=== PATIENT | female | born 1965 | race Caucasian/White ===

== ENCOUNTER 2016-12-09 13:30 | Emergency (ER) | payer OTHER ==
[2016-12-09] MEDS ORDERED: Sodium Chloride 0.9% 10 ML Syringe FLUSH PRN (13:45)
[2016-12-09] MEDS ORDERED: Sodium Chloride 0.9% 1,000 ML IV SCH ×2 (14:00→16:30)
--- NOTE | 2016-12-09 14:50 | CR ---
Chest: Portable view of the chest was obtained. Comparison: No previous chest x-ray. Heart size and mediastinum are normal. Parenchymal density is noted within the right upper lung. This may relate to costochondral calcification but difficult to exclude nodule. Lungs otherwise are clear. Bony structures are grossly intact. Impression: 1. Finding within the right upper chest as described above. Noncontrast chest CT recommended to exclude the possibility of nodule. 2. Nothing acute is otherwise seen on portable chest x-ray. Diagnostic code #9
--- NOTE | 2016-12-09 15:24 | EDM.PDOC ---
ED HISTORY OF PRESENT ILLNESS - General Chief Complaint: Chest Pain Stated Complaint: CHEST PAINS x3 DAYS AND CHILLS Time Seen by Provider: 12/09/16 13:42 Source of Information: Reports: Patient, RN notes reviewed - History of Present Illness INITIAL COMMENTS - FREE TEXT/NARRATIVE: 51-year-old lady comes in with chest pain. She's had this intermittently for about 3-4 days. Pain has been mid chest and right upper chest with some radiation to the right shoulder. She's not been coughing any more than usual. She does not smoke. The pain is worse with deep breathing. She has had some nausea but no vomiting. She presents to the ED extremely drowsy. Her speech is very soft, quiet, slurred difficult to understand. Her daughter present with her states that she has been taking lorazepam on a regular basis prescribed by her own physician refugio Monroe. Her about 6 months ago. She's been very stressed with that and takes that for stress and anxiety. She also does take sleeping medication. Patient states she took one lorazepam this morning about 68 hours ago and then took another lorazepam about 6 one or 2 hours ago. Apparently she is having difficulty sleeping last night so she did take a sleeping pill at about 3 AM and then states she took another sleeping pill about 3 or 4 hours later. No abdominal pain at this time. No fever or chills. - Related Data Allergies/ADRs: Allergies Allergy/AdvReac Type Severity Reaction Status Date / Time latex Allergy Rash Verified 12/13/16 15:22 meperidine [From Demerol] Allergy Rash Verified 12/13/16 15:22 Home Meds: Home Meds Cyanocobalamin (Vitamin B12) [Vitamin B12] 1,000 mcg SUBCUT ASDIRECTED 12/09/16 [History] LORazepam [Ativan] 1 mg PO Q4H PRN 12/09/16 [History] QUEtiapine [SEROquel] 50 mg PO BEDTIME PRN 12/09/16 [History] Venlafaxine HCl [Venlafaxine ER] 37.5 mg PO DAILY 12/09/16 [History] Venlafaxine HCl [Venlafaxine ER] 150 mg PO DAILY 12/09/16 [History] risperiDONE 0.25 mg PO BID 12/09/16 [History] Past Medical History Gastrointestinal History: Reports: Other (see below) Other Gastrointestinal History: gatric bypass Psychiatric History: Reports: Anxiety, Depression - Past Surgical History GI Surgical History: Reports: Appendectomy, Cholecystectomy Female Surgical History: Reports: Hysterectomy Social & Family History - Tobacco Use Smoking Status *Q: Former Smoker Used Tobacco, but Quit: No - Recreational Drug Use Recreational Drug Use: No ED ROS GENERAL - Review of Systems Review Of Systems: See Below Constitutional: Denies: fever, chills, diaphoresis HEENT: Denies: Sinus problem, Throat pain Respiratory: Reports: Shortness of Breath (Occasional), Pleuritic Chest Pain. Denies: Cough Cardiovascular: Reports: Chest pain (Mid chest and right upper chest) GI/Abdominal: Denies: Abdominal pain, Nausea, Vomiting Musculoskeletal: Reports: shoulder pain (Right shoulder intermittent). Denies: neck pain, arm pain, back pain, leg pain, joint pain Skin: Reports: no symptoms Neurological: Reports: Dizziness, Trouble Speaking (Speech is slurred) Psychiatric: Reports: Anxiety ED EXAM, GENERAL - Physical Exam Exam: See Below General Appearance: other (Patient is extremely drowsy, she does answer questions but her speech is slurred, soft, hard to understand) Eye Exam: bilateral eye: PERRL Throat/Mouth: Normal inspection, Other Head: atraumatic (Oral mucosa is dry). No: facial swelling Neck: supple, full range of motion Respiratory/Chest: lungs clear, normal breath sounds, other (There is tenderness of the left anterior chest). No: rales, rhonchi, wheezing Cardiovascular: regular rate, rhythm GI/Abdominal: soft, non tender Back Exam: No: CVA tenderness (L), CVA tenderness (R) Extremities: normal inspection. No: pedal edema, leg pain, increased warmth Neurological: no motor/sensory deficits, other (Very drowsy, she is off a couple of days on date of the week, and some difficulty telling me what month it is). No: oriented Skin Exam: Warm, Normal color, No rash EKG INTERPRETATION EKG Date: 12/09/16 Rhythm: NSR P-wave: present QRS: normal ST-T: normal Course - Vital Signs Last Recorded V/S: Last Vital Signs Temp 98.3 F 12/09/16 13:40 Pulse 76 12/09/16 18:15 Resp 15 12/09/16 18:15 BP 94/69 12/09/16 18:15 Pulse Ox 97 12/09/16 18:15 - Orders/Labs/Meds Labs: Laboratory Tests 12/09/16 12/09/16 12/09/16 Range/Units 14:05 14:05 14:05 WBC 5.46 (3.98-10.04) K/mm3 RBC 4.35 (3.98-5.22) M/mm3 Hgb 13.5 (11.2-15.7) gm/L Hct 40.8 (34.1-44.9) % MCV 93.8 (79.4-94.8) fl MCH 31.0 (25.6-32.2) pg MCHC 33.1 (32.2-35.5) g/dl RDW Std Deviation 44.0 (36.4-46.3) fL Plt Count 186 (182-369) K/mm3 MPV 10.3 (9.4-12.3) fl Neut % (Auto) 52.1 (34.0-71.1) % Lymph % (Auto) 37.4 (19.3-51.7) % [place] % (Auto) 9.9 (4.7-12.5) % Eos % (Auto) 0 L (0.7-5.8) Baso % (Auto) 0.4 (0.1-1.2) % Neut # (Auto) 2.85 (1.56-6.13) K/mm3 Lymph # (Auto) 2.04 (1.18-3.74) K/mm3 [place] # (Auto) 0.54 H (0.24-0.36) K/mm3 Eos # (Auto) 0.00 L (0.04-0.36) K/mm3 Baso # (Auto) 0.02 (0.01-0.08) K/mm3 Sodium 143 (136-145) mEq/L Potassium 3.8 (3.5-5.1) mEq/L Chloride 105 (98-107) mEq/L Carbon Dioxide 31 (21-32) mEq/L Anion Gap 10.8 (5-15) BUN 14 (7-18) mg/dL Creatinine 0.8 (0.55-1.02) mg/dL Est Cr Clr Drug Dosing 73.46 mL/min Estimated GFR (MDRD) > 60 (>60) mL/min BUN/Creatinine Ratio 17.5 (14-18) Glucose 92 (74-106) mg/dL Calcium 9.2 (8.5-10.1) mg/dL Total Bilirubin 0.3 (0.2-1.0) mg/dL AST 25 (15-37) U/L ALT 41 (14-59) U/L Alkaline Phosphatase 92 (46-116) U/L Total Protein 7.2 (6.4-8.2) g/dl Albumin 3.9 (3.4-5.0) g/dl Globulin 3.3 gm/dL Albumin/Globulin Ratio 1.2 (1-2) Urine Opiates Screen (NEGATIVE) Ur Buprenorphine Scrn (NEGATIVE) Ur Oxycodone Screen (NEGATIVE) Urine Methadone Screen (NEGATIVE) Ur Propoxyphene Screen (NEGATIVE) Ur Barbiturates Screen (NEGATIVE) Ur Tricyclics Screen (NEGATIVE) Ur Phencyclidine Scrn (NEGATIVE) Ur Amphetamine Screen (NEGATIVE) U Methamphetamines Scrn (NEGATIVE) U Benzodiazepines Scrn (NEGATIVE) U Cocaine Metab Screen (NEGATIVE) U Marijuana (THC) Screen (NEGATIVE) Ethyl Alcohol 0.00 (0.00) gm% 12/09/16 Range/Units 15:18 WBC (3.98-10.04) K/mm3 RBC (3.98-5.22) M/mm3 Hgb (11.2-15.7) gm/L Hct (34.1-44.9) % MCV (79.4-94.8) fl MCH (25.6-32.2) pg MCHC (32.2-35.5) g/dl RDW Std Deviation (36.4-46.3) fL Plt Count (182-369) K/mm3 MPV (9.4-12.3) fl Neut % (Auto) (34.0-71.1) % Lymph % (Auto) (19.3-51.7) % [place] % (Auto) (4.7-12.5) % Eos % (Auto) (0.7-5.8) Baso % (Auto) (0.1-1.2) % Neut # (Auto) (1.56-6.13) K/mm3 Lymph # (Auto) (1.18-3.74) K/mm3 [place] # (Auto) (0.24-0.36) K/mm3 Eos # (Auto) (0.04-0.36) K/mm3 Baso # (Auto) (0.01-0.08) K/mm3 Sodium (136-145) mEq/L Potassium (3.5-5.1) mEq/L Chloride (98-107) mEq/L Carbon Dioxide (21-32) mEq/L Anion Gap (5-15) BUN (7-18) mg/dL Creatinine (0.55-1.02) mg/dL Est Cr Clr Drug Dosing mL/min Estimated GFR (MDRD) (>60) mL/min BUN/Creatinine Ratio (14-18) Glucose (74-106) mg/dL Calcium (8.5-10.1) mg/dL Total Bilirubin (0.2-1.0) mg/dL AST (15-37) U/L ALT (14-59) U/L Alkaline Phosphatase (46-116) U/L Total Protein (6.4-8.2) g/dl Albumin (3.4-5.0) g/dl Globulin gm/dL Albumin/Globulin Ratio (1-2) Urine Opiates Screen Negative (NEGATIVE) Ur Buprenorphine Scrn Negative (NEGATIVE) Ur Oxycodone Screen Negative (NEGATIVE) Urine Methadone Screen Negative (NEGATIVE) Ur Propoxyphene Screen Negative (NEGATIVE) Ur Barbiturates Screen Negative (NEGATIVE) Ur Tricyclics Screen Presumptive positive H (NEGATIVE) Ur Phencyclidine Scrn Negative (NEGATIVE) Ur Amphetamine Screen Negative (NEGATIVE) U Methamphetamines Scrn Negative (NEGATIVE) U Benzodiazepines Scrn Presumptive positive H (NEGATIVE) U Cocaine Metab Screen Negative (NEGATIVE) U Marijuana (THC) Screen Negative (NEGATIVE) Ethyl Alcohol (0.00) gm% Meds: Medications Discontinued Medications Generic Name Dose Route Start Last Admin Trade Name Freq PRN Reason Stop Dose Admin Sodium Chloride 1,000 mls @ 999 mls/hr 12/09/16 14:00 12/09/16 14:41 Normal Saline IV 999 mls/hr ONETIME BIANCA Administration Sodium Chloride 1,000 mls @ 999 mls/hr 12/09/16 16:30 12/09/16 16:34 Normal Saline IV 999 mls/hr ONETIME BIANCA Administration Sodium Chloride 10 ml 12/09/16 13:45 12/09/16 14:41 Saline Flush FLUSH 10 ml ASDIRECTED PRN Administration Keep Vein Open - Re-Assessments/Exams Free Text/Narrative Re-Assessment/Exam: 12/09/16 15:38 Chest x-ray shows a small density right upper chest radiologist recommends noncontrast CT to exclude the possibility of nodule. That will be done at this time. 12/09/16 15:40 EKG is completely normal. Sinus rythm, no ectopy. Daughter states she has been under a lot of stress with the of her about 7 months ago and now some other family problems. 12/09/16 17:49 Ct of chest was good. Pt remained very drowsy from time of arrival. Have now given 2 liter of IV NS. She is very arouseable. She was hungry, ate a dinner plate quite well and than went back to sleep. She does wake up to discuss discharge. She will be with family tonight and tomorrow. Sats remain good in the 98 % range. We did get her up to walk. She is unsteady on her feet but did walk out into the hallway and than back to her room with precautionary assistance. Family will be with her to help keep her safe. Discharge instr. as documented. 12/09/16 18:11 Departure - Departure Time of Disposition: 17:43 Disposition: Home, Self-Care 01 Condition: fair Clinical Impression: Atypical chest pain Accidental medication overdose Qualifiers: Encounter type: initial encounter Qualified Code(s): T50.901A - Poisoning by unspecified drugs, medicaments and biological substances, accidental ( unintentional), initial encounter Instructions: Nonspecific Chest Pain, [id number] Referrals: PCP,None [Primary Care Provider] - Forms: ED Department Discharge Additional Instructions: the dosage of ativan you have been prescribed is too high for you. Also it takes a long time for it to metabolize out of your body. No further ativan recomended for 48 hrs. I than recomend you go to 0.5 mg or 1/2 tablet q 12 hrs as needed for stress and anxiety. Continue to see your counselor on a regular basis. Exercise outdoors every day if possible. advil or ibuprofen q 6 to 8 hr if needed for further chest discomfort. Return to ED as needed.
--- NOTE | 2016-12-09 15:53 | CT ---
CT chest Technique: Multiple axial sections were obtained from above the lung apices inferiorly through the lung bases. Intravenous contrast was not utilized. Findings: Small subpleural bleb is seen within the left base measuring 1.4 cm. Minimal dependent atelectasis is seen posteriorly within both lung bases which is incidental. No pulmonary nodule is seen. Nodule noted on prior chest x-ray therefore corresponds to calcification within the first costochondral junction. Mediastinum and hilar regions show no adenopathy or mass. Mild coronary artery calcification is seen. No pericardial thickening is seen. Previous stomach surgery is noted. Surgical clips are noted from prior cholecystectomy. Bilateral breast prosthesis are seen. Bone window settings were reviewed which appear within normal limits for the patient's age. Impression: 1. No pulmonary nodule is seen as questioned on chest x-ray. Nodule on chest x-ray therefore represents costochondral calcification. 2. Other incidental findings as described above. Diagnostic code #2
[2016-12-09 18:25] VITALS: BP 94/69
== END 2016-12-09 18:20 ==
LOC: JD.ED 13:30
DX: R07.89 Other chest pain (principal); T50.901A Poisoning by unspecified drugs, medicaments and biological substances, accidental (unintentional), initial encounter; F32.9 Major depressive disorder, single episode, unspecified; F41.9 Anxiety disorder, unspecified; Z79.899 Other long term (current) drug therapy; Z87.891 Personal history of nicotine dependence; Z88.6 Allergy status to analgesic agent; Z91.040 Latex allergy status
CPT/HCPCS: 36415; 71010; 71250; 80053; 80306; 85025; 93005; 96360; 96361; 99285; G0480; J7040; J7050; 99284

== ENCOUNTER 2016-12-13 15:11 | Emergency (ER) | payer OTHER ==
[2016-12-13] MEDS ORDERED: Sodium Chloride 0.9% 10 ML Syringe FLUSH PRN (15:37)
[2016-12-13] MEDS ORDERED: Meclizine 12.5 MG Tab PO ONE (15:50)
[2016-12-13] MEDS ORDERED: methylPREDNISolone Sodium Succinate 125 MG/2 ML SDV IM ONE (15:50)
[2016-12-13] MEDS ORDERED: Ketorolac 30 MG/ML SDV IVPUSH SCH (17:30)
--- NOTE | 2016-12-13 17:49 | EDM.PDOC ---
ED HISTORY OF PRESENT ILLNESS - General Chief Complaint: Chest Pain Stated Complaint: [facility] Time Seen by Provider: 12/13/16 15:19 Source of Information: Reports: Patient, EMS, Family, RN notes reviewed - History of Present Illness INITIAL COMMENTS - FREE TEXT/NARRATIVE: 51-year-old female has been brought in by [facility] for evaluation of chest pain, upper abdominal pain, nausea vomiting and syncope. Patient is drowsy on arrival. She gives a very vague history. She's had some intermittent chest pain over the past 2 or 3 days. The discomfort was much better yesterday, her son states that she had a good day, she was active, worked and seemed to be feeling well. Today she did start having chest discomfort again. The pain was worse with deep breathing. She took some Aleve. She then became nauseated, vomited and than suffered brief syncope. At that point ambulance was called. She was transported here without further incident. She continues to have some nausea some upper mid abdominal and lower anterior chest discomfort on arrival. She's not been having diarrhea. Not coughing any more than usual. She's not having pain into either arm at this time. She has no known personal cardiac history but states that her problems do run in her family. She was evaluated here in the ED 4 days ago for extreme lethargy from overmedication. See that record for further details. - Related Data Allergies/ADRs: Allergies Allergy/AdvReac Type Severity Reaction Status Date / Time latex Allergy Rash Verified 12/13/16 15:22 meperidine [From Demerol] Allergy Rash Verified 12/13/16 15:22 Home Meds: Home Meds Cyanocobalamin (Vitamin B12) [Vitamin B12] 1,000 mcg SUBCUT ASDIRECTED 12/09/16 [History] LORazepam [Ativan] 1 mg PO Q4H PRN 12/09/16 [History] QUEtiapine [SEROquel] 50 mg PO BEDTIME PRN 12/09/16 [History] Venlafaxine HCl [Venlafaxine ER] 37.5 mg PO DAILY 12/09/16 [History] Venlafaxine HCl [Venlafaxine ER] 150 mg PO DAILY 12/09/16 [History] risperiDONE 0.25 mg PO BID 12/09/16 [History] Past Medical History Gastrointestinal History: Reports: Other (see below) Other Gastrointestinal History: gatric bypass Psychiatric History: Reports: Anxiety, Depression - Past Surgical History GI Surgical History: Reports: Appendectomy, Cholecystectomy Female Surgical History: Reports: Hysterectomy Social & Family History - Tobacco Use Smoking Status *Q: Former Smoker Used Tobacco, but Quit: Yes Month Tobacco Last Used: DECEMBER - Caffeine Use Caffeine Use: Reports: Soda - Recreational Drug Use Recreational Drug Use: No ED ROS GENERAL - Review of Systems Review Of Systems: See Below Constitutional: Reports: diaphoresis (Mild, gone). Denies: fever, chills HEENT: Denies: Sinus problem, Throat pain Respiratory: Reports: Shortness of Breath (Gone), Pleuritic Chest Pain, Cough ( Occasion). Denies: Wheezing Cardiovascular: Reports: Chest pain, Lightheadedness GI/Abdominal: Reports: Abdominal pain (Upper abdominal), Nausea, Vomiting. Denies: Diarrhea Musculoskeletal: Denies: shoulder pain, arm pain, leg pain Skin: Denies: rash Neurological: Reports: Dizziness. Denies: Numbness, Tingling ED EXAM, GENERAL - Physical Exam Exam: See Below General Appearance: alert, other (Drowsy) Eye Exam: bilateral eye: PERRL Throat/Mouth: Normal inspection, Normal oropharynx Head: atraumatic. No: facial swelling Neck: supple, full range of motion, other (No JVD). No: lymphadenopathy (L), lymphadenopathy (R) Respiratory/Chest: no respiratory distress, lungs clear, normal breath sounds, other (There is tenderness of the right sternal border and right lower chest wall) Cardiovascular: regular rate, rhythm GI/Abdominal: soft, tender (There is tenderness of the upper mid abdomen) Extremities: No: pedal edema, leg pain Neurological: alert, oriented, no motor/sensory deficits Skin Exam: Warm, Dry, No rash EKG INTERPRETATION EKG Date: 12/13/16 Rhythm: NSR [place]: normal P-wave: present QRS: normal ST-T: normal Course - Vital Signs Last Recorded V/S: Last Vital Signs Temp 98.4 F 12/13/16 15:17 Pulse 72 12/13/16 17:15 Resp 16 12/13/16 17:15 BP 108/70 12/13/16 17:15 Pulse Ox 97 12/13/16 17:15 - Orders/Labs/Meds Orders: Active Orders 24 hr Category Date Time Status EKG 12 Lead [EKG Documentation Completion] [RC] STAT Care 12/13/16 15:37 Active Peripheral IV Care [RC] . DIRECTED Care 12/13/16 15:37 Active Chest 1V Frontal [CR] Stat Exams 12/13/16 15:50 Taken Ketorolac [Toradol] Med 12/13/16 17:30 Active 30 mg IVPUSH ONETIME Sodium Chloride 0.9% [Saline Flush] Med 12/13/16 15:37 Active 10 ml FLUSH ASDIRECTED PRN Peripheral IV Insertion Adult [OM.PC] Stat Oth 12/13/16 15:37 Ordered Medication Orders Ketorolac Tromethamine (Toradol) 30 mg IVPUSH ONETIME [facility] Last Admin: 12/13/16 17:30 Dose: 30 mg Sodium Chloride (Saline Flush) 10 ml FLUSH ASDIRECTED PRN PRN Reason: Keep Vein Open Last Admin: 12/13/16 15:43 Dose: 10 ml Labs: Laboratory Tests 12/13/16 12/13/16 Range/Units 16:15 16:15 WBC 8.26 (3.98-10.04) K/mm3 RBC 4.40 (3.98-5.22) M/mm3 Hgb 13.6 (11.2-15.7) gm/L Hct 41.2 (34.1-44.9) % MCV 93.6 (79.4-94.8) fl MCH 30.9 (25.6-32.2) pg MCHC 33.0 (32.2-35.5) g/dl RDW Std Deviation 44.0 (36.4-46.3) fL Plt Count 228 (182-369) K/mm3 MPV 10.2 (9.4-12.3) fl Neut % (Auto) 60.9 (34.0-71.1) % Lymph % (Auto) 31.2 (19.3-51.7) % [place] % (Auto) 7.4 (4.7-12.5) % Eos % (Auto) 0 L (0.7-5.8) Baso % (Auto) 0.4 (0.1-1.2) % Neut # (Auto) 5.03 (1.56-6.13) K/mm3 Lymph # (Auto) 2.58 (1.18-3.74) K/mm3 [place] # (Auto) 0.61 H (0.24-0.36) K/mm3 Eos # (Auto) 0.00 L (0.04-0.36) K/mm3 Baso # (Auto) 0.03 (0.01-0.08) K/mm3 Sodium 140 (136-145) mEq/L Potassium 4.0 (3.5-5.1) mEq/L Chloride 105 (98-107) mEq/L Carbon Dioxide 30 (21-32) mEq/L Anion Gap 9.0 (5-15) BUN 13 (7-18) mg/dL Creatinine 0.8 (0.55-1.02) mg/dL Est Cr Clr Drug Dosing 70.37 mL/min Estimated GFR (MDRD) > 60 (>60) mL/min BUN/Creatinine Ratio 16.3 (14-18) Glucose 103 (74-106) mg/dL Calcium 9.4 (8.5-10.1) mg/dL Total Bilirubin 0.4 (0.2-1.0) mg/dL AST 24 (15-37) U/L ALT 35 (14-59) U/L Alkaline Phosphatase 92 (46-116) U/L Troponin I < 0.017 (0.00-0.056) ng/mL Total Protein 7.5 (6.4-8.2) g/dl Albumin 3.9 (3.4-5.0) g/dl Globulin 3.6 gm/dL Albumin/Globulin Ratio 1.1 (1-2) Meds: Medications Generic Name Dose Route Start Last Admin Trade Name Freq PRN Reason Stop Dose Admin Ketorolac Tromethamine 30 mg 12/13/16 17:30 12/13/16 17:30 Toradol IVPUSH 30 mg ONETIME BIANCA Administration Sodium Chloride 10 ml 12/13/16 15:37 12/13/16 15:43 Saline Flush FLUSH 10 ml ASDIRECTED PRN Administration Keep Vein Open Discontinued Medications Generic Name Dose Route Start Last Admin Trade Name Freq PRN Reason Stop Dose Admin Meclizine HCl 12.5 mg 12/13/16 15:50 12/13/16 15:57 Antivert PO 12/13/16 15:51 12.5 mg ONETIME ONE Administration Methylprednisolone Sodium Succinate 125 mg 12/13/16 15:50 12/13/16 15:57 Solu-Medrol IM 12/13/16 15:51 125 mg ONETIME ONE Administration - Re-Assessments/Exams Free Text/Narrative Re-Assessment/Exam: 12/13/16 18:08 Chest x-ray is normal, troponin has come back normal, labs are otherwise normal. We have given some IV fluid, IV Zofran and also not Toradol just prior to discharge. I am going to set her up for an echocardiogram. Discharge instructions as documented Departure - Departure Time of Disposition: 17:46 Disposition: Home, Self-Care 01 Condition: fair Clinical Impression: Atypical chest pain Syncope Qualifiers: Syncope type: unspecified Qualified Code(s): R55 - Syncope and collapse Instructions: Nonspecific Chest Pain, Syncope, [id number] Referrals: PCP,None [Primary Care Provider] - Forms: ED Department Discharge Additional Instructions: Tylenol up to 3 times daily if needed for further chest discomfort, as discussed last I suggested you taper down on the lorazepam. 0.5 mg 2-3 times a day would be appropriate along with your other medications as previously prescribed. Order for echocardiogram is been provided. Radiology will call you tomorrow morning to set you up at that time. Followup with Dr. Carrizales about 4-5 days after you have had the echocardiogram done for results, further treatment as needed. Return to ED as needed if symptoms worsening in any way - My Orders Last 24 Hours: My Active Orders 12/13/16 15:37 EKG 12 Lead [EKG Documentation Completion] [RC] STAT Peripheral IV Care [RC] . DIRECTED Sodium Chloride 0.9% [Saline Flush] 10 ml FLUSH ASDIRECTED PRN Peripheral IV Insertion Adult [OM.PC] Stat 12/13/16 15:50 Chest 1V Frontal [CR] Stat 12/13/16 17:30 Ketorolac [Toradol] 30 mg IVPUSH ONETIME - Assessment/Plan Last 24 Hours: My Active Orders 12/13/16 15:37 EKG 12 Lead [EKG Documentation Completion] [RC] STAT Peripheral IV Care [RC] . DIRECTED Sodium Chloride 0.9% [Saline Flush] 10 ml FLUSH ASDIRECTED PRN Peripheral IV Insertion Adult [OM.PC] Stat 12/13/16 15:50 Chest 1V Frontal [CR] Stat 12/13/16 17:30 Ketorolac [Toradol] 30 mg IVPUSH ONETIME
[2016-12-13 19:09] VITALS: BP 92/58
--- NOTE | 2016-12-14 06:43 | CR ---
Chest: Portable view of the chest was obtained. Comparison: Previous chest x-ray of 12/09/16. Heart size and mediastinum are normal. Lungs are clear. Bony structures are grossly intact. Surgical clips are seen from prior cholecystectomy. Impression: 1. Nothing acute is identified on portable chest x-ray. Diagnostic code #1
== END 2016-12-13 18:20 | disposition home or self-care (01) ==
LOC: JD.ED 15:11
DX: R55 Syncope and collapse (principal); R07.89 Other chest pain; F41.9 Anxiety disorder, unspecified; Z90.49 Acquired absence of other specified parts of digestive tract; Z90.710 Acquired absence of both cervix and uterus; Z79.899 Other long term (current) drug therapy; Z87.891 Personal history of nicotine dependence; Z88.5 Allergy status to narcotic agent
CPT/HCPCS: 36415; 71010; 80053; 84484; 85025; 93005; 96372; 96374; 99285; A9270; J1885; J2930; J7050; 99284

== ENCOUNTER 2018-11-11 17:53 | Emergency (ER) | payer BC ==
[2018-11-11] MEDS ORDERED: Morphine 4 MG/ML Syringe IVPUSH ONE (18:07)
[2018-11-11] MEDS ORDERED: Sodium Chloride 0.9% 10 ML Syringe FLUSH PRN (18:07)
[2018-11-11 18:08] VITALS: BP 139/83
[2018-11-11] MEDS ORDERED: Ondansetron 4 MG/2 ML SDV IVPUSH ONE (18:08)
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
[2018-11-11] MEDS ORDERED: HYDROmorphone 0.5 MG/0.5 ML Syringe IVPUSH ONE (19:20)
[2018-11-11] MEDS ORDERED: Sodium Chloride 0.9% 1,000 ML IV SCH (19:30)
[2018-11-11] MEDS ORDERED: Ketorolac 30 MG/ML SDV IVPUSH ONE (19:48)
--- NOTE | 2018-11-12 13:07 | CR ---
Left elbow: Two views of the left elbow were obtained which mostly included the forearm. Supracondylar fracture is seen within the distal humerus. Fracture not completely included on both views. Displacement is noted with the proximal fragment being anteriorly displaced in relation of the distal fragment. No additional bony abnormality is seen. Impression: 1. Displaced supracondylar fracture within the distal humerus. Diagnostic code #3
--- NOTE | 2018-11-12 13:07 | CR ---
Chest: Portable view of the chest was obtained. Comparison: Prior chest x-ray of 12/13/16. Heart size and mediastinum are normal. Lungs are clear. No discrete bony abnormality is appreciated. Impression: 1. Nothing acute is appreciated on portable chest x-ray. Diagnostic code #1
--- NOTE | 2018-11-12 13:07 | CR ---
Left shoulder: Single AP view of the left shoulder was obtained utilizing portable technique. Comparison: No prior shoulder study. Glenohumeral joint appears within normal limits. Minimal inferior spurring is noted off the acromioclavicular joint. No fracture or other bony abnormality is seen. Impression: 1. Slight inferior spurring off the acromioclavicular joint. 2. AP left shoulder study is otherwise unremarkable. Diagnostic code #2
--- NOTE | 2018-11-12 13:07 | CR ---
Chest: Two views of the chest were obtained. Comparison: Prior chest x-ray of 11/11/18. Heart size and mediastinum are within normal limits. Lungs are clear. Bony structures are unremarkable. Surgical clips are seen within the upper abdomen compatible with prior cholecystectomy. Impression: 1. Incidental findings. Nothing acute is appreciated on two-view chest x-ray. Diagnostic code #2
== END 2018-11-11 21:01 | disposition home or self-care (01) ==
LOC: JD.ED 17:53
DX: S42.492A Other displaced fracture of lower end of left humerus, initial encounter for closed fracture (principal); Z88.8 Allergy status to other drugs, medicaments and biological substances; Z91.040 Latex allergy status; Z79.899 Other long term (current) drug therapy; V89.2XXA Person injured in unspecified motor-vehicle accident, traffic, initial encounter
CPT/HCPCS: 29105; 36415; 71045; 71046; 73020; 73070; 80053; 85025; 96361; 96374; 96375; 99284; J1170; J1885; J2270; J2405; J7040

== ENCOUNTER 2018-11-12 13:25 | Emergency (ER) | payer BC ==
[2018-11-12 13:41] VITALS: BP 133/93
[2018-11-12] MEDS ORDERED: HYDROmorphone 0.5 MG/0.5 ML Syringe IM ONE (13:49)
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
[2018-11-12] MEDS ORDERED: HYDROmorphone 0.5 MG/0.5 ML Syringe ONE (14:02)
== END 2018-11-12 14:14 | disposition home or self-care (01) ==
LOC: JD.ED 13:25
DX: S72.22XA Displaced subtrochanteric fracture of left femur, initial encounter for closed fracture (principal); E11.9 Type 2 diabetes mellitus without complications; F41.9 Anxiety disorder, unspecified; F32.9 Major depressive disorder, single episode, unspecified; E03.9 Hypothyroidism, unspecified; Z79.899 Other long term (current) drug therapy; Z91.040 Latex allergy status; Z88.5 Allergy status to narcotic agent; Z88.8 Allergy status to other drugs, medicaments and biological substances; W19.XXXA Unspecified fall, initial encounter
CPT/HCPCS: 29105; 96372; 99283; J1170

== ENCOUNTER 2019-06-14 21:17 | Emergency (ER) | payer OTHER, BC ==
[2019-06-14 21:34] VITALS: BP 165/79; PULSE 71
[2019-06-14] MEDS ORDERED: Sodium Chloride 0.9% 1,000 ML IV ONE (21:44)
[2019-06-14] MEDS ORDERED: Ondansetron 4 MG/2 ML SDV IVPUSH ONE (21:47)
[2019-06-14] MEDS ORDERED: HYDROmorphone 0.5 MG/0.5 ML Syringe IVPUSH ONE (21:47)
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
[2019-06-14] MEDS ORDERED: Potassium Chloride 20 MEQ Tab.ER PO ONE (22:48)
--- NOTE | 2019-06-15 07:07 | CT ---
Head CT Technique: Multiple axial sections through the brain were obtained. Intravenous contrast was not utilized. No prior intracranial imaging is available. Findings: Ventricles along with basal cisterns and sulci over the convexities are within normal limits for the patient's age. No abnormal parenchymal densities are seen. No evidence of intracranial hemorrhage. No midline shift or mass effect is seen. Visualized paranasal sinuses are clear. Mastoid sinuses are also clear. No acute calvarial abnormality is appreciated. Impression: 1. Nothing acute is appreciated on noncontrast head CT exam. Diagnostic code #1 I agree with preliminary report from [facility], finalized on 06/14/19, 11:26 PM Central Time
--- NOTE | 2019-06-15 07:07 | CR ---
Left elbow: Three views of the left elbow were obtained. Comparison: Previous left elbow study of 11/11/18. Plate and screws are identified within the distal humerus affixing old distal humeral fracture. No acute fracture, dislocation or other bony abnormality is seen. Impression: 1. Old healed fracture within the distal humerus with plate and screws in place. 2. Nothing acute is identified on left elbow study. Diagnostic code #2
--- NOTE | 2019-06-15 07:28 | CT ---
CT cervical spine Technique: Multiple axial sections were obtained from above C1 inferiorly to the bottom of T2. Reconstructed sagittal and coronal images were reviewed. Comparison: No prior cervical spine imaging is available. Findings: Degenerative change noted between the dens and anterior arch of C1. Slight anterior osteophytes noted at C5-C6. Vertebral body heights and disc spaces are preserved. Vertebral bodies and posterior arches are intact. No fracture is seen. No bony central canal stenosis or neural foraminal stenosis is seen. Degenerative apophyseal change is scattered throughout cervical spine. Visualized lung apices are clear. Low density nodules are felt to be present within the thyroid gland. Impression: 1. Low-density findings within the thyroid gland. These are nonspecific for nodules versus cysts. Nonemergent thyroid ultrasound could be considered to further evaluate. 2. Mild degenerative change as noted above. 3. No acute abnormality is appreciated on CT study of the cervical spine. Diagnostic code #3 I agree with preliminary report from [facility], finalized on 06/14/19, 11:24 PM Central Time
--- NOTE | 2019-06-15 07:28 | CT ---
CT chest Technique: Multiple axial sections were obtained from above the lung apices inferiorly through the lung bases. Intravenous contrast was utilized. Comparison: Prior chest CT study of 12/09/16. Findings: Thyroid gland is enlarged and shows low density finding. Mediastinum and hilar region show no adenopathy. Aorta shows no aneurysm. No axillary adenopathy is seen. Bilateral breast prosthesis are noted. Lungs are clear with no acute parenchymal change. No pleural effusions are noted. No pneumothorax is identified. Bone window settings were reviewed which show scattered old healed fracture deformities within the ribs. No acute rib abnormality is appreciated. Thoracic spine shows no discrete abnormality. Mild scattered endplate spurring is seen within the spine. Impression: 1. Low density nodules within the thyroid gland. As mentioned on cervical spine CT report, nonemergent thyroid ultrasound could be obtained to further evaluate. 2. Other findings as noted above which are chronic. 3. No acute abnormality is appreciated on CT study of the chest. Diagnostic code #2 I agree with preliminary report from [facility], finalized on 06/14/19, 11:[address] abdomen and pelvis Technique: Multiple axial sections were obtained from above the dome of the diaphragm inferiorly through the pubic symphysis. Intravenous contrast was utilized. No oral contrast has been given. Limitations: Patient's arms along the side which causes some artifact within the upper abdomen. Comparison: No prior abdominal imaging. Findings: Liver shows no discrete abnormality. Spleen appears within normal limits. Adrenal glands show no nodule. Pancreas shows no discrete abnormality. Surgical clips noted from prior cholecystectomy. Aorta shows no aneurysm. No retroperitoneal adenopathy or mesenteric abnormalities are seen. No pelvic mass or adenopathy is seen. No free fluid or inflammatory change is seen. Bone window settings were reviewed which show nothing acute within the lumbar spine. Degenerative change noted with endplate spurring and degenerative apophyseal change within the lumbar spine. No pelvic or hip fracture is appreciated. Delayed images were also obtained which show contrast excretion into both ureters and bladder without any contrast extravasation. Appendix is not visualized with certainty. Impression: 1. Findings as noted above. 2. Nothing acute is appreciated on CT study of the abdomen and pelvis. Diagnostic code #2 I agree with preliminary report from [facility], finalized on 06/14/19, 11:32 PM Central Time
== END 2019-06-15 01:03 | disposition home or self-care (01) ==
LOC: JD.ED 21:17
DX: S00.81XA Abrasion of other part of head, initial encounter (principal); M54.2 Cervicalgia; M25.552 Pain in left hip; M25.572 Pain in left ankle and joints of left foot; E11.9 Type 2 diabetes mellitus without complications; F41.9 Anxiety disorder, unspecified; F32.9 Major depressive disorder, single episode, unspecified; Z91.048 Other nonmedicinal substance allergy status; Z88.8 Allergy status to other drugs, medicaments and biological substances; Z88.5 Allergy status to narcotic agent; Z79.899 Other long term (current) drug therapy; V49.40XA Driver injured in collision with unspecified motor vehicles in traffic accident, initial encounter; Y92.410 Unspecified street and highway as the place of occurrence of the external cause
CPT/HCPCS: 36415; 70450; 70450-26; 71260; 71260-26; 72125; 72125-26; 73080-26-LT; 73080-LT; 74177; 74177-26; 80053; 80306; 81001; 85025; 85610; 85730; 96361; 96374; 96375; 99284-25; A9270-GY; J1170; J2405; J7040

== ENCOUNTER 2019-07-31 14:32 | Emergency (ER) | payer BC ==
[2019-07-31] MEDS ORDERED: Promethazine 25 MG/ML SDV IM ONE (15:16)
[2019-07-31] MEDS ORDERED: Morphine 4 MG/ML Syringe IM ONE (15:16)
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
--- NOTE | 2019-07-31 15:59 | CR ---
Chest: 2 views of the chest were obtained. Comparison: Prior chest x-ray of 11/11/[address] of 06/14/19. Heart size and mediastinum are normal. Lungs are clear with no acute parenchymal change. Minimal degenerative change is scattered within the spine with minimal scoliosis. Surgical clips are seen within the upper abdomen. Impression: 1. Findings as noted above. 2. Nothing acute is appreciated on 2 view chest x-ray. Diagnostic code #2 This report was dictated in [place] Standard Time
[2019-07-31 17:41] VITALS: BP 124/88; PULSE 74
== END 2019-07-31 17:40 | disposition home or self-care (01) ==
LOC: JD.ED 14:32
DX: M54.6 Pain in thoracic spine (principal); M54.5 Low back pain; E11.9 Type 2 diabetes mellitus without complications; F41.9 Anxiety disorder, unspecified; F32.9 Major depressive disorder, single episode, unspecified; Z86.2 Personal history of diseases of the blood and blood-forming organs and certain disorders involving the immune mechanism; Z88.8 Allergy status to other drugs, medicaments and biological substances; Z91.048 Other nonmedicinal substance allergy status; Z91.040 Latex allergy status; Z79.899 Other long term (current) drug therapy
CPT/HCPCS: 71046; 81001; 96372; 99284; J2270; J2550; 99283

== ENCOUNTER 2020-05-01 05:33 | Emergency (ER) | payer BC, OTHER ==
[2020-05-01] MEDS ORDERED: Sodium Chloride 0.9% 10 ML Syringe FLUSH PRN (06:10)
--- NOTE | 2020-05-01 06:17 | EDM.PDOC ---
ED HPI GENERAL MEDICAL PROBLEM - General Chief Complaint: Respiratory Problem Stated Complaint: sob weak Time Seen by Provider: 05/01/20 06:00 Source of Information: Reports: Patient History Limitations: Reports: No Limitations - History of Present Illness INITIAL COMMENTS - FREE TEXT/NARRATIVE: The patient presents with generalized weakness and chest pain. This started a few hours ago when she was getting up for work. She says she does not feel right and she has generalized body aches. She feels feverish and has chills. She did have a cough. She has no loss of sense of taste or smell. She has shortness of breath. She has been exposed through coworkers at work. She does smoke. Onset: Gradual Duration: Hour(s): Location: Reports: Generalized Quality: Reports: Ache Severity: Moderate Improves with: Reports: None Worsens with: Reports: None Associated Symptoms: Reports: Chest Pain, Cough, Fever/Chills, Shortness of Breath. Denies: Headaches, Nausea/Vomiting Chest Pain Score (Numeric/FACES): 7 - Related Data Allergies Allergy/AdvReac Type Severity Reaction Status Date / Time adhesive Allergy Rash Verified 05/01/20 05:46 duloxetine [From Cymbalta] Allergy Blisters Verified 05/01/20 05:46 latex Allergy Rash Verified 05/01/20 05:46 meperidine [From Demerol] Allergy Rash Verified 05/01/20 05:46 Home Meds: Home Meds Potassium Chloride [Klor-Con M10] 2 tab PO DAILY 05/01/20 [History] Past Medical History HEENT History: Reports: Impaired Vision Other HEENT History: wears contacts Cardiovascular History: Reports: Hypertension, Other (See Below) Other Cardiovascular History: hypotension. 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 - Infectious Disease History Infectious Disease History: Reports: Chicken Pox, MRSA - Past Surgical History GI Surgical History: Reports: Appendectomy, Bariatric Procedure, Cholecystectomy Female Surgical History: Reports: Hysterectomy Musculoskeletal Surgical History: Reports: ORIF Social & Family History - Family History Family Medical History: Noncontributory - Tobacco Use Smoking Status *Q: Light Tobacco Smoker Years of Tobacco use: 20 Packs/Tins Daily: 0 - Caffeine Use Caffeine Use: Reports: None - Recreational Drug Use Recreational Drug Use: Yes Recreational Drug Type: Reports: Marijuana/Hashish Recreational Drug Use Frequency: Weekly ED ROS GENERAL - Review of Systems Review Of Systems: See Below Constitutional: Reports: Fever, Chills, Malaise, Weakness, Fatigue HEENT: Reports: No Symptoms Respiratory: Reports: Shortness of Breath, Cough Cardiovascular: Reports: Chest Pain Endocrine: Reports: No Symptoms GI/Abdominal: Reports: No Symptoms Musculoskeletal: Reports: Muscle Stiffness ED EXAM, GENERAL - Physical Exam Exam: See Below Exam Limited By: No Limitations General Appearance: Alert, No Apparent Distress Ears: Normal External Exam Nose: Normal Inspection Head: Atraumatic, Normocephalic Neck: Normal Inspection Respiratory/Chest: No Respiratory Distress, Lungs Clear, Normal Breath Sounds Cardiovascular: Regular Rate, Rhythm, No Edema, No Murmur GI/Abdominal: Soft, Non-Tender, No Organomegaly, No Mass Back Exam: Normal Inspection Extremities: Normal Inspection Course - Vital Signs Last Recorded V/S: Last Vital Signs Temp 97.4 F 05/01/20 05:43 Pulse 67 05/01/20 05:43 Resp 20 05/01/20 05:43 BP 186/96 H 05/01/20 05:43 Pulse Ox 97 05/01/20 05:43 - Orders/Labs/Meds Orders: Active Orders 24 hr Category Date Time Status Cardiac Monitoring [RC] . DIRECTED Care 05/01/20 06:10 Active EKG Documentation Completion [RC] STAT Care 05/01/20 06:10 Active Peripheral IV Care [RC] . DIRECTED Care 05/01/20 06:10 Active Chest 1V Frontal [CR] Stat Exams 05/01/20 06:10 Ordered CORONAVIRUS COVID-19 PCR PHL Stat Lab 05/01/20 06:42 Received Sodium Chloride 0.9% [Saline Flush] Med 05/01/20 06:10 Active 10 ml FLUSH ASDIRECTED PRN Peripheral IV Insertion Adult [OM.PC] Stat Oth 05/01/20 06:10 Ordered Medication Orders Sodium Chloride (Saline Flush) 10 ml FLUSH ASDIRECTED PRN PRN Reason: Keep Vein Open Labs: Laboratory Tests 05/01/20 05/01/20 Range/Units 06:30 06:30 WBC 6.82 (3.98-10.04) K/mm3 RBC 4.57 (3.98-5.22) M/mm3 Hgb 13.8 (11.2-15.7) gm/dl Hct 41.4 (34.1-44.9) % MCV 90.6 (79.4-94.8) fl MCH 30.2 (25.6-32.2) pg MCHC 33.3 (32.2-35.5) g/dl RDW Std Deviation 43.2 (36.4-46.3) fL Plt Count 255 (182-369) K/mm3 MPV 10.1 (9.4-12.3) fl Neut % (Auto) 55.5 (34.0-71.1) % Lymph % (Auto) 32.7 (19.3-51.7) % [facility] % (Auto) 9.2 (4.7-12.5) % Eos % (Auto) 2.2 (0.7-5.8) Baso % (Auto) 0.3 (0.1-1.2) % Neut # (Auto) 3.78 (1.56-6.13) K/mm3 Lymph # (Auto) 2.23 (1.18-3.74) K/mm3 [facility] # (Auto) 0.63 H (0.24-0.36) K/mm3 Eos # (Auto) 0.15 (0.04-0.36) K/mm3 Baso # (Auto) 0.02 (0.01-0.08) K/mm3 Sodium 142 (136-145) mEq/L Potassium 2.9 L (3.5-5.1) mEq/L Chloride 104 (98-107) mEq/L Carbon Dioxide 30 (21-32) mEq/L Anion Gap 10.9 (5-15) BUN 10 (7-18) mg/dL Creatinine 0.8 (0.55-1.02) mg/dL Est Cr Clr Drug Dosing 65.06 mL/min Estimated GFR (MDRD) > 60 (>60) mL/min BUN/Creatinine Ratio 12.5 L (14-18) Glucose 108 H (74-106) mg/dL Calcium 9.2 (8.5-10.1) mg/dL Total Bilirubin 0.5 (0.2-1.0) mg/dL AST 20 (15-37) U/L ALT 27 (14-59) U/L Alkaline Phosphatase 77 (46-116) U/L Troponin I < 0.017 (0.00-0.056) ng/mL Total Protein 7.3 (6.4-8.2) g/dl Albumin 3.9 (3.4-5.0) g/dl Globulin 3.4 gm/dL Albumin/Globulin Ratio 1.2 (1-2) Meds: Medications Generic Name Dose Route Start Last Admin Trade Name Freq PRN Reason Stop Dose Admin Sodium Chloride 10 ml 05/01/20 06:10 Saline Flush FLUSH ASDIRECTED PRN Keep Vein Open - Re-Assessments/Exams Free Text/Narrative Re-Assessment/Exam: 05/01/20 06:16 I ordered an IV saline lock, EKG, CXR, labs and COVID 19 test. 05/01/20 07:14 Her CBC and CMP look good. Her troponin is negative. Her CXR is delayed due to another patient but I anticipate it to be normal. I will have her quarantine until we get test results. Departure - Departure Time of Disposition: 07:15 Disposition: Home, Self-Care 01 Condition: Good Clinical Impression: Viral URI, Atypical chest pain - Discharge Information *PRESCRIPTION DRUG MONITORING PROGRAM REVIEWED*: Not Applicable *COPY OF PRESCRIPTION DRUG MONITORING REPORT IN PATIENT ADELA: Not Applicable Referrals: PCP,None [Primary Care Provider] - Forms: ED Department Discharge, ED Return to Work/School Form Additional Instructions: Go home and rest. Drink plenty of fluids. Take motrin or tylenol for fever or pain. We will inform you of the results in a few days. Please return if you are worse. Sepsis Event Note (ED) - Evaluation Sepsis Screening Result: No Definite Risk - Focused Exam Vital Signs: Vital Signs Temp Pulse Resp BP Pulse Ox 05/01/20 05:43 97.4 F 67 20 186/96 H 97 - My Orders Last 24 Hours: My Active Orders 05/01/20 06:10 Cardiac Monitoring [RC] . DIRECTED EKG Documentation Completion [RC] STAT Peripheral IV Care [RC] . DIRECTED Chest 1V Frontal [CR] Stat Sodium Chloride 0.9% [Saline Flush] 10 ml FLUSH ASDIRECTED PRN Peripheral IV Insertion Adult [OM.PC] Stat 05/01/20 06:42 CORONAVIRUS COVID-19 PCR PHL Stat - Assessment/Plan Last 24 Hours: My Active Orders 05/01/20 06:10 Cardiac Monitoring [RC] . DIRECTED EKG Documentation Completion [RC] STAT Peripheral IV Care [RC] . DIRECTED Chest 1V Frontal [CR] Stat Sodium Chloride 0.9% [Saline Flush] 10 ml FLUSH ASDIRECTED PRN Peripheral IV Insertion Adult [OM.PC] Stat 05/01/20 06:42 CORONAVIRUS COVID-19 PCR PHL Stat
--- NOTE | 2020-05-01 08:17 | CR ---
Chest: Portable view of the chest was obtained. Comparison: Prior chest x-ray of 11/11/18 and 12/13/16. Heart size and mediastinum are normal. Lungs are clear with no acute parenchymal change. Bony structures are grossly intact. Impression: 1. Nothing acute is identified on portable chest x-ray. Diagnostic code #1 This report was dictated in MDT
[2020-05-01 08:48] VITALS: BP 160/80; PULSE 76
== END 2020-05-01 08:48 | disposition home or self-care (01) ==
LOC: JD.ED 05:33
DX: J06.9 Acute upper respiratory infection, unspecified (principal); R07.89 Other chest pain; I10 Essential (primary) hypertension; F17.290 Nicotine dependence, other tobacco product, uncomplicated; Z91.040 Latex allergy status; Z88.8 Allergy status to other drugs, medicaments and biological substances; Z88.5 Allergy status to narcotic agent; Z91.09 Other allergy status, other than to drugs and biological substances; Z79.899 Other long term (current) drug therapy; Z90.49 Acquired absence of other specified parts of digestive tract; Z90.710 Acquired absence of both cervix and uterus; Z11.59 Encounter for screening for other viral diseases
CPT/HCPCS: 36415; 71045; 71045-26; 80053; 82962; 84484; 85025; 93005; 93010; 99283; 99285-25; U0002

== ENCOUNTER 2021-12-28 08:50 | Emergency (ER) | payer BC ==
[2021-12-28 09:12] VITALS: PULSE 123
[2021-12-28] MEDS ORDERED: Aspirin 81 MG Tab.Chew PO ONE (09:14)
[2021-12-28] MEDS ORDERED: Morphine 2 MG/ML SYRINGE IVPUSH ONE ×2 (09:14→10:04)
[2021-12-28] MEDS: Nitroglycerin 0.4 MG Tab.SL SL PRN ×3 (09:32→13:46)
[2021-12-28] MEDS ORDERED: Labetalol 100 MG/20 ML MDV IVPUSH ONE (09:40)
[2021-12-28] MEDS ORDERED: LORazepam 2 MG/ML SDV IVPUSH ONE (10:35)
[2021-12-28] MEDS ORDERED: Lactated Ringers 1,000 ML IV SCH (10:45)
[2021-12-28 13:53] VITALS: BP 145/85
[2021-12-28] MEDS ORDERED: Acetaminophen/HYDROcodone 325-5 MG Tab PO ONE (14:06)
== END 2021-12-28 15:10 | disposition home or self-care (01) ==
LOC: JD.ED 08:50
DX: R07.89 Other chest pain (principal); I10 Essential (primary) hypertension; R00.0 Tachycardia, unspecified; E11.9 Type 2 diabetes mellitus without complications; Z91.048 Other nonmedicinal substance allergy status; Z91.040 Latex allergy status; Z88.8 Allergy status to other drugs, medicaments and biological substances
CPT/HCPCS: 36415; 71045; 80053; 84484; 85025; 85379; 85610; 85730; 93005; 96374; 96375; 96376; 99285; A9270; J2060; J2270; J3490; J7120

== ENCOUNTER 2023-01-03 15:44 | Emergency (ER) | payer BC ==
[2023-01-03 16:14] VITALS: BP 185/115; PULSE 83
[2023-01-03] MEDS ORDERED: traMADol 50 MG Tab PO ONE (16:49)
[2023-01-03 17:00] LABS: BASOPHILS ABSOLUTE AUTO 0.02 K/mm3 (0.01-0.08); BASOPHILS PERCENT AUTO 0.3 % (0.1-1.2); EOSINOPHILS ABSOLUTE AUTO 0.08 K/mm3 (0.04-0.36); EOSINOPHILS PERCENT AUTO 1.1 (0.7-5.8); HEMATOCRIT 37.4 % (34.1-44.9); IMMATURE GRAN ABSOLUTE AUTO 0.02 K/mm3 (0.00-0.10); IMMATURE GRAN PERCENT AUTO 0.3 % (<=1.0); LYMPHOCYTES ABSOLUTE AUTO 1.78 K/mm3 (1.18-3.74); LYMPHOCYTES PERCENT AUTO 25.2 % (19.3-51.7); MEAN CORPUSCULAR HEMOGLOBIN 27.9 pg (25.6-32.2); MEAN CORPUSCULAR HGB CONC 32.1 g/dl (32.2-35.5); MEAN PLATELET VOLUME 10.1 fl (9.4-12.3); MONOCYTES ABSOLUTE AUTO 0.42 K/mm3 (0.24-0.36); MONOCYTES PERCENT AUTO 5.9 % (4.7-12.5); NEUTROPHILS ABSOLUTE AUTO 4.75 K/mm3 (1.56-6.13); NEUTROPHILS PERCENT AUTO 67.2 % (34.0-71.1); PLATELET COUNT,PLT 352 K/mm3 (182-369); WHITE BLOOD CELL COUNT,WBC 7.07 K/mm3 (3.98-10.04)
[2023-01-03 17:14] LABS: ALBUMIN 3.9 g/dl (3.4-5.0); ANION GAP 11.5 (5-15); BILIRUBIN TOTAL 0.4 mg/dL (0.2-1.0); BUN/CREATININE RATIO 10.8 (14-18); CALCIUM 9.4 mg/dL (8.5-10.1); CREATININE 1.2 mg/dL (0.55-1.02); EST CRCL DRUG DOSING (CG) 41.89 mL/min; PROTEIN TOTAL,TP 7.7 g/dl (6.4-8.2)
[2023-01-03 17:23] LABS: POTASSIUM,K 2.5 mEq/L (3.5-5.1)
[2023-01-03] MEDS ORDERED: Potassium Chloride 20 MEQ Tab.ER PO ONE (17:30)
== END 2023-01-03 18:12 | disposition home or self-care (01) ==
LOC: JD.ED 15:44
DX: E87.6 Hypokalemia (principal); M25.512 Pain in left shoulder; I10 Essential (primary) hypertension; E11.9 Type 2 diabetes mellitus without complications; Z79.899 Other long term (current) drug therapy; Z91.048 Other nonmedicinal substance allergy status; Z88.8 Allergy status to other drugs, medicaments and biological substances; Z88.5 Allergy status to narcotic agent; Z91.040 Latex allergy status
CPT/HCPCS: 36415; 80053; 85025; 93005; 99285; A9270; 93010; 99283

== ENCOUNTER 2025-01-28 09:25 | Emergency (ER) | payer BC ==
[2025-01-28 09:38] VITALS: BP 172/95; PULSE 73
[2025-01-28] MEDS ORDERED: Sodium Chloride 0.9% 10 ML Syringe FLUSH PRN ×2 (09:58→10:09)
[2025-01-28] MEDS ORDERED: Naloxone 0.4 MG/ML SDV IVPUSH PRN (10:01)
[2025-01-28] MEDS ORDERED: Aspirin 81 MG Tab.Chew PO ONE (10:01)
[2025-01-28] MEDS ORDERED: Iopamidol 755 Mg/ML 100 ML Bottle IVPUSH ONE ×2 (10:09→10:10)
[2025-01-28] MEDS ORDERED: Sodium Chloride 0.9% 10 ML Syringe FLUSH ONE (10:10)
[2025-01-28] MEDS ORDERED: Sodium Chloride 0.9% 100 ML IV SCH ×2 (10:15)
[2025-01-28] MEDS: Morphine 4 MG/ML Syringe IVPUSH ONE ×2 (10:16→11:40)
[2025-01-28] MEDS: Ondansetron 4 MG/2 ML SDV IVPUSH ONE (10:17)
[2025-01-28] MEDS: Aspirin 81 MG Tab.Chew PO ONE (10:17)
[2025-01-28] MEDS: diphenhydrAMINE 50 MG/ML SDV IVPUSH ONE (10:27)
[2025-01-28 10:32] LABS: BASOPHILS ABSOLUTE AUTO 0.1 K/mm3 (0.0-0.2); BASOPHILS PERCENT AUTO 0.8 % (0.0-1.0); EOSINOPHILS ABSOLUTE AUTO 0.3 K/mm3 (0.0-0.4); EOSINOPHILS PERCENT AUTO 3.8 % (0.0-6.0); HEMATOCRIT 38.6 % (37.0-47.0); HEMOGLOBIN 12.6 gm/dl (12.0-16.0); IMMATURE GRAN ABSOLUTE AUTO 0.01 K/mm3 (0.00-0.05); IMMATURE GRAN PERCENT AUTO 0.2 % (0.0-0.4); LYMPHOCYTES ABSOLUTE AUTO 1.5 K/mm3 (1.0-4.8); LYMPHOCYTES PERCENT AUTO 22.4 % (24.0-44.0); MEAN CORPUSCULAR HEMOGLOBIN 28.7 pg (28.0-32.0); MEAN CORPUSCULAR HGB CONC 32.6 g/dl (32.0-36.0); MEAN CORPUSCULAR VOLUME 87.9 fl (83.0-99.0); MONOCYTES ABSOLUTE AUTO 0.5 K/mm3 (0.0-0.8); MONOCYTES PERCENT AUTO 7.2 % (0.0-8.0); NEUTROPHILS ABSOLUTE AUTO 4.3 K/mm3 (1.8-7.7); NEUTROPHILS PERCENT AUTO 65.6 % (41.0-71.0); PLATELET COUNT,PLT 225 K/mm3 (150-400); RED BLOOD CELL COUNT 4.39 M/mm3 (4.10-5.30); WHITE BLOOD CELL COUNT,WBC 6.56 K/mm3 (3.9-11.3)
[2025-01-28 10:35] LABS: APPEARANCE,URINE CLEAR (Clear); BILIRUBIN,URINE NEGATIVE (Negative); COLOR,URINE YELLOW (Yellow); GLUCOSE,URINE 1+ (Negative); KETONES,URINE NEGATIVE (Negative); LEUKOCYTE ESTERASE,URINE NEGATIVE (Negative); NITRITE,URINE NEGATIVE (Negative); OCCULT BLOOD,URINE NEGATIVE (Negative); PROTEIN,URINE NEGATIVE (Negative); UROBILINOGEN,URINE 0.2 (0.2-1.0)
[2025-01-28 10:44] LABS: BARBITURATE SCREEN,URINE NEGATIVE (CUTOFF=200); BENZODIAZEPINES SCREEN,URINE PRESUMPTIVE POSITIVE (CUTOFF=150); BUPRENORPHINE SCREEN,URINE NEGATIVE (CUTOFF=10); METHADONE SCREEN, URINE NEGATIVE (CUTOFF=200); METHAMPHETAMINES SCREEN, URINE NEGATIVE (CUTOFF=500); OXYCODONE SCREEN,URINE NEGATIVE (CUT0FF=100); THC SCREEN,URINE 20 NG/ML PRESUMPTIVE POSITIVE (CUTOFF=50)
[2025-01-28 10:46] LABS: AMPHETAMINES SCREEN, URINE NEGATIVE (CUTOFF=500)
[2025-01-28 11:12] LABS: A/G RATIO 1.2 (1-2); ALBUMIN 3.9 g/dl (3.4-5.0); ANION GAP 11.7 (5-15); BILIRUBIN TOTAL 0.6 mg/dL (0.2-1.0); BUN/CREATININE RATIO 11.1 (14-18); CALCIUM 9.4 mg/dL (8.5-10.1); CREATININE 0.9 mg/dL (0.55-1.02); EST CRCL DRUG DOSING (CG) 56.18 mL/min; MAGNESIUM 1.9 mg/dL (1.8-2.4); POTASSIUM,K 3.7 mEq/L (3.5-5.1); PROTEIN TOTAL,TP 7.3 g/dl (6.4-8.2)
== END 2025-01-28 14:45 | disposition home or self-care (01) ==
LOC: JD.ED 09:25
DX: R10.30 Lower abdominal pain, unspecified (principal); R10.9 Unspecified abdominal pain; R33.9 Retention of urine, unspecified
CPT/HCPCS: 36415; 51702; 71045; 71275; 72191; 74175; 80053; 80306; 81003; 83605; 83735; 84484; 85025; 93005; 96374; 96375; 96376; 99285; A9270; J1200; J2270; J2405; 93010; 99284